=== PATIENT | female | born 1985 | race Hispanic/Latino ===

== ENCOUNTER 2018-01-30 15:35 | Emergency (ER) | payer MEDICAID ==
[2018-01-30] MEDS ORDERED: TYLENOL ONE (18:06)
[2018-01-30] MEDS ORDERED: TYLENOL PO ONE (18:11)
[2018-01-30 18:13] VITALS: BP 145/95
== END 2018-01-30 18:13 | disposition left against medical advice (07) ==
LOC: ED 15:35
DX: M79.1 Myalgia (principal); Z53.21 Procedure and treatment not carried out due to patient leaving prior to being seen by health care provider
CPT/HCPCS: 93005; 93010